=== PATIENT | male | born 1990 | race African-American/Black ===

== ENCOUNTER 2018-10-24 21:15 | Emergency (ER) | payer MEDICAID ==
--- NOTE | 2018-10-24 21:49 | Emergency Room Report ---
History of Present Illness General Chief Complaint: To Be Triaged Source: Patient Present Illness HPI Is a 27-year-old male who checked in with chief complaint of back pain. He was here with his friend who was checked in for asthma. Since I discharged the patient with asthma, he got up and left without being seen. I did not see this patient. Medical Decision Making Diagnostic Impression: Primary Impression: Low back pain Qualified Codes: M54.5 - Low back pain Disposition: LEFT W/OUT BEING SEEN Elio Ford MD Oct 24, 2018 21:49
== END 2018-10-24 21:43 | disposition left against medical advice (07) ==
LOC: EMR 21:43
DX: Z53.21 Procedure and treatment not carried out due to patient leaving prior to being seen by health care provider (principal); M54.5 Low back pain

== ENCOUNTER 2018-11-01 15:42 | Emergency (ER) | payer MEDICAID ==
[~2018-11-01] VITALS: Ht 185.4 cm; Wt 191.4 kg
[2018-11-01 15:50] VITALS: BP 130/75
--- NOTE | 2018-11-01 15:59 | NUR ---
ED Nurse Note: pt came in self ambulatory with . pt c/o chest pain 7/10 and trouble breathing per pt pain radiates to back and knees. pt has history of asthma. per pt he had duoneb 1540. Cinthia at bedside. Dr. Iraheta has seen pt, awaiting new orders
[2018-11-01] MEDS: Albuterol ud Inhalation HHN SCH ×3 (16:07→16:57)
[2018-11-01] MEDS: Ipratropium 0.02% Inh Soln 2.5ml UD HHN SCH ×3 (16:07→16:57)
--- NOTE | 2018-11-01 16:09 | NUR ---
ED Nurse Note: Dr. Iraheta ordered Presnisone. Per pt she gave pt prednisone at 1200 today 11/01/18. notified Dr. Iraheta, per md hold prednisone. will monitor pt, awaiting new orders.
--- NOTE | 2018-11-01 16:24 | Emergency Room Report ---
History of Present Illness General Chief Complaint: Dyspnea/Respdistress Source: Patient Present Illness HPI 27-year-old M presents ED for evaluation. Complaining of cough and shortness of breath. Productive phlegm. History of asthma. States his breathing treatments at home were not helping. States he went to urgent care today and was told he had a pneumonia. Is currently on day 2 of his Z-Mayur. Denies fevers chills. Denies sick contacts or recent travel. No other aggravating relieving factors. Denies any other associated symptoms Allergies: Coded Allergies: No Known Allergies (Unverified , 11/01/18) Patient History Past Medical History: asthma Past Surgical History: none Pertinent Family History: none Social History: Denies: smoking, alcohol use, drug use Immunizations: UTD Reviewed Nursing Documentation: PMH: Agreed; PSxH: Agreed Nursing Documentation-PMH Past Medical History: No History, Except For Hx Asthma: Yes Review of Systems All Other Systems: negative except mentioned in HPI Physical Exam Vital Signs Date Time Temp Pulse Resp B/P (MAP) Pulse Ox O2 Delivery O2 Flow Rate FiO2 11/01/18 15:46 98.2 95 23 144/81 100 Room Air 11/01/18 16:00 21 Sp02 EP Interpretation: reviewed, normal General Appearance: alert, GCS 15, non-toxic, obese Head: normocephalic, atraumatic Eyes: bilateral eye normal inspection, bilateral eye PERRL ENT: hearing grossly normal, normal pharynx, no angioedema, normal voice Neck: full range of motion, supple/symm/no masses Respiratory: chest non-tender, decreased breath sounds, speaking full sentences , wheezing Cardiovascular #1: regular rate, rhythm, no edema Cardiovascular #2: 2+ carotid (R), 2+ carotid (L), 2+ radial (R), 2+ radial (L) , 2+ dorsalis pedis (R), 2+ dorsalis pedis (L) Gastrointestinal: normal bowel sounds, non tender, soft, non-distended, no guarding, no rebound Rectal: deferred Genitourinary: normal inspection, no CVA tenderness Musculoskeletal: back normal, gait/station normal, normal range of motion, non- tender Neurologic: alert, oriented x3, responsive, motor strength/tone normal, sensory intact, speech normal Psychiatric: judgement/insight normal, memory normal, mood/affect normal, no suicidal/homicidal ideation Reflexes: 3+ bicep (R), 3+ bicep (L), 3+ tricep (R), 3+ tricep (L), 3+ knee (R) , 3+ knee (L) Skin: normal color, no rash, warm/dry, well hydrated Lymphatic: no adenopathy Medical Decision Making Diagnostic Impression: Primary Impression: Asthma exacerbation Qualified Codes: J45.901 - Unspecified asthma with (acute) exacerbation ER Course Hospital Course 27-year-old male presents to ED complaining of cough, wheezing, bodyaches. seen at urgent care today Differential diagnoses include: URI, bronchitis, asthma/COPD, pneumonia Clinical course Patient placed on stretcher. After initial history, physical exam reveals an obese male in mild acute distress. Bilateral TM unremarkable. No pharyngeal erythema. No tonsillar exudates. No lymphadenopathy. diffuse wheezing bilaterally. I ordered prednisone, chest x-ray, nebulizer treatments, EKG EKGnormal sinus rhythm no acute ischemic changes interpreted by me Chest x-rayno consolidation or infiltrate or effusion On reassessment patient is feeling better. Vital stable. no signs of distress. Discussed findings with patient. Patient is under the impression that he had pneumonia but there is no clinical evidence of pneumonia based on my exam I offered option for admission as patient states he has been having symptoms for many days now. Patient states he feels better, is asking to be discharged. Patient is currently prescribed azithromycin for his symptoms. I explained to patient that he should complete the Z-Mayur. We will prescribe inhaler, steroids , nebulizer machine, cough medication Safe for discharge and close outpatient follow-up Diagnosis - asthma exacerbation Stable and discharged home with prescriptions for albuterol, prednisone, nebulizer, promethazine, tylenol #3, amoxicillin. Instructed to followup with PMD. Return to ED if symptoms recur or worsen EKG Diagnostic Results Rate: normal Rhythm: NSR ST Segments: no acute changes ASA given to the pt in ED: No Rhythm Strip Diag. Results EP Interpretation: yes Rhythm: NSR, no PVC's, no ectopy Chest X-Ray Diagnostic Results Chest X-Ray Diagnostic Results : Chest X-Ray Ordered: Yes # of Views/Limited/Complete: 1 View Indication: Shortness of Breath EP Interpretation: Yes Interpretation: no consolidation, no effusion, no pneumothorax, no acute cardiopulmonary disease Impression: No acute disease Electronically Signed by: Electronically signed by Macario Hernandez MD Last Vital Signs Date Time Temp Pulse Resp B/P (MAP) Pulse Ox O2 Delivery O2 Flow Rate FiO2 11/01/18 16:12 102 18 100 Room Air 21 11/01/18 15:46 98.2 144/81 Status: improved Disposition: HOME, SELF-CARE Condition: Stable Scripts Acetaminophen With Codeine (T#3) (TYLENOL #3 TAB*) Y Tab 1 TAB ORAL Q8H PRN for For Pain for 3 Days, TAB Prov: Macario Hernandez MD 11/01/18 Nebulizer/Compressor (COMP-AIR NEBULIZER SYSTEM) 1 Each Each EACH , #1 Prov: Macario Hernandez MD 11/01/18 Amoxicillin* (AMOXIL*) 500 Mg Capsule 500 MG ORAL THREE TIMES A DAY, #21 CAP Prov: Macario Hernandez MD 11/01/18 Promethazine Hcl (PROMETHAZINE HCL*) 6.25 Mg/5 Ml Syrup 5 ML ORAL Q8H, #120 ML 0 Refills Prov: Macario Hernandez MD 11/01/18 Albuterol Sulfate* (ALBUTEROL SULFATE HHN*) 2.5 Mg/3 Ml Vial.neb 2.5 MG HHN Q4H PRN for Shortness of Breath, #25 VIAL Prov: Macario Hernandez MD 11/01/18 Albuterol Sulfate* (ALBUTEROL SULFATE MDI*) 8.5 Gm Hfa.aer.ad 2 PUFF INH Q4H PRN for cough/wheezing, #1 EA 0 Refills Prov: Macario Hernandez MD 11/01/18 Prednisone* (PREDNISONE*) 20 Mg Tablet 60 MG ORAL DAILY for 4 Days, #12 TAB Prov: Macario Hernandez MD 11/01/18 Referrals: [facility],REFERRING (PCP) Macario Hernandez MD Nov 01, 2018 16:24
--- NOTE | 2018-11-01 16:55 | Diagnostic Imaging Report ---
EXAM: XR Chest, 1 View CLINICAL HISTORY: COUGH TECHNIQUE: Frontal view of the chest. COMPARISON: No relevant prior studies available. FINDINGS: Lungs: No consolidation. Pleural space: Unremarkable. No pneumothorax. Heart: Unremarkable. No cardiomegaly. Mediastinum: Unremarkable. Bones/joints: No acute fracture. IMPRESSION: No acute cardiopulmonary disease.
[2018-11-01] MEDS ORDERED: Albuterol ud Inhalation HHN ONE (17:30)
[2018-11-01] MEDS ORDERED: Ipratropium 0.02% Inh Soln 2.5ml UD HHN ONE (17:30)
[2018-11-01 17:46] VITALS: BP 137/67
[2018-11-01] MEDS ORDERED: COMP-AIR NEBUL1 EACH MC (17:57)
[2018-11-01] MEDS ORDERED: ACETAMINOPHEN-1 EAC1 ORAL (17:57)
[2018-11-01] MEDS ORDERED: ALBUTEROL SULF8.5 GM INH (17:57)
[2018-11-01] MEDS ORDERED: AMOXICILLIN500 MG ORAL (17:57)
[2018-11-01] MEDS ORDERED: ALBUTEROL2.5 MG/3 M HHN (17:57)
[2018-11-01] MEDS ORDERED: PREDNISONE20 MG ORAL (17:57)
[2018-11-01] MEDS ORDERED: PROMETHAZI6.25 MG/1 ORAL (17:57)
[2018-11-01 18:11] VITALS: BP 133/72
--- NOTE | 2018-11-01 18:14 | NUR ---
ED Nurse Note: pt was dc self ambulatory. id band removed. pt was given rx instructions and dc education. pt verbalized understanding. Vss, pt ao x 4., shows no trouble with breathing.
== END 2018-11-01 18:10 | disposition home or self-care (01) ==
LOC: EMR 16:08
DX: J45.901 Unspecified asthma with (acute) exacerbation (principal)
CPT/HCPCS: 71045; 93005; 94644; 94664; 99284; J7512

== ENCOUNTER 2019-02-02 10:16 | Emergency (ER) | payer MEDICAID ==
[~2019-02-02] VITALS: Ht 185.4 cm; Wt 176.4 kg
[~2019-02-02 10:16] MED LIST: ACETAMINOPHEN-1 EAC1 ORAL; ALBUTEROL SULF8.5 GM INH; ALBUTEROL2.5 MG/3 M HHN; AMOXICILLIN500 MG ORAL; COMP-AIR NEBUL1 EACH MC; PREDNISONE20 MG ORAL; PROMETHAZI6.25 MG/1 ORAL
--- NOTE | 2019-02-02 10:30 | NUR ---
ED Nurse Note: Patient walked into ED from home c/o of left sided chest pain x 4 days. 4 days ago, patient had asthma attack, he went to urgent care.
[2019-02-02 10:48] VITALS: BP 124/63
--- NOTE | 2019-02-02 10:54 | Emergency Room Report ---
History of Present Illness General Chief Complaint: Chest Pain Source: Patient Present Illness HPI Patient is a 28-year-old male who presented after increased chest discomfort. Patient reports of increased left-sided chest pain. This did not radiate. Associated increased cough. Patient prior history of asthma and is currently on steroid taper. Is currently taking 10 mg of prednisone as well as a Ventolin inhaler. He denies any prior cardiac conditions. He states that he had been having constant pain for the past 3 days. He reports having some chronic swelling to his left lower extremity but denies any change in the swelling.Patient denies any fever or productive cough. Allergies: Coded Allergies: No Known Allergies (Unverified , 11/01/18) Patient History Past Medical History: see triage record Reviewed Nursing Documentation: PMH: Agreed; PSxH: Agreed Nursing Documentation-PMH Hx Asthma: Yes - BACK PAIN Review of Systems All Other Systems: negative except mentioned in HPI Physical Exam Vital Signs Date Time Temp Pulse Resp B/P (MAP) Pulse Ox O2 Delivery O2 Flow Rate FiO2 02/02/19 10:20 98.2 68 23 104/66 97 Room Air Sp02 EP Interpretation: reviewed, normal General Appearance: normal inspection, well appearing, no apparent distress, alert, GCS 15, non-toxic, obese Head: atraumatic ENT: normal ENT inspection, hearing grossly normal, normal voice Neck: normal inspection, full range of motion, supple, no bony tend Respiratory: normal inspection, lungs clear, normal breath sounds, no respiratory distress, no retraction, no wheezing Cardiovascular #1: regular rate, rhythm, no edema Gastrointestinal: normal inspection, normal bowel sounds, non tender, soft, no guarding, no hernia Genitourinary: no CVA tenderness Musculoskeletal: normal inspection, back normal, normal range of motion Neurologic: normal inspection, alert, oriented x3, responsive, speech normal Psychiatric: normal inspection, judgement/insight normal, mood/affect normal Skin: normal inspection, normal color, no rash Medical Decision Making Diagnostic Impression: Primary Impression: Chest pain Additional Impression: Asthma exacerbation ER Course Patient presented for chest pain. Differential diagnosis included but was not limited to acute coronary syndrome, pulmonary embolism, pneumonia, aortic dissection, shingles, pneumothorax, aortic dissection, esophageal rupture, pericarditis. Because of complexity of patient's case laboratory testing and imaging studies were ordered. EKG interpreted by me showed normal sinus rhythm with no acute ST or T wave changes. Chest x-ray 1 view read by radiology showed normal cardiac size without evident infiltrate or effusion. Patient was noted to have no significant cardiac risk factors. Patient also was noted to have sick contacts at home with similar symptoms and this appears to be a viral respiratory illness. Patient advised to continue steroids. He was advised to return if he began having any increased chest pain or worsening shortness of breath. He was given prescription for medications for cough symptomatic treatment. EKG Diagnostic Results Rate: normal - 63 Rhythm: NSR ST Segments: no acute changes Last Vital Signs Date Time Temp Pulse Resp B/P (MAP) Pulse Ox O2 Delivery O2 Flow Rate FiO2 02/02/19 10:20 98.2 68 23 104/66 97 Room Air Status: improved Disposition: HOME, SELF-CARE Condition: Stable Scripts Guaifenesin/Dextromethorphan (Guaifenesin Dm Syrup) 5 Ml Syrup 1 TSP ORAL Q8H, #118 ML 0 Refills Prov: Calos Yeager MD 02/02/19 Calos Yeager MD Feb 02, 2019 10:54
[2019-02-02] MEDS ORDERED: Albuterol ud Inhalation HHN ONE (11:00)
--- NOTE | 2019-02-02 11:50 | Diagnostic Imaging Report ---
Indication: Shortness of breath Technique: One view of the chest Comparison: 11/01/2018 Findings: Body habitus limits evaluation. Heart is borderline enlarged. No definite acute infiltrates, effusion, or congestion Impression: No definite acute process
--- NOTE | 2019-02-02 11:51 | NUR ---
ED Nurse Note: 3 RNs tried to start IV, unsuccessful. atm technician is here to try.
--- NOTE | 2019-02-02 12:04 | NUR ---
ED Nurse Note: director of labor and delivery Danilo tried, unable to. Notified Dr. Yeager.
[2019-02-02] MEDS ORDERED: GUAIFENESIN DM118 M1 ORAL (13:18)
[2019-02-02 13:22] VITALS: BP 124/63
--- NOTE | 2019-02-02 13:23 | NUR ---
ER DISCHARGE NOTE: Patient is cleared to be discharged per ERMD, pt is aox4, on room air, with stable vital signs. pt was given dc and prescription instructions, pt was able to verbalize understanding, pt id band removed without complications. pt is able to ambulate with steady gait. pt took all belongings.
--- NOTE | 2019-02-04 07:51 | Cardiology Report ---
APPROVED REPORT EKG Measurement Heart [id number] Normal sinus rhythm Low voltage QRS Borderline ECG
== END 2019-02-02 13:20 | disposition home or self-care (01) ==
LOC: EMR 10:30
DX: R07.89 Other chest pain (principal); J45.901 Unspecified asthma with (acute) exacerbation
CPT/HCPCS: 71045; 86710; 93005; 94640; 94664; 99284

== ENCOUNTER 2019-05-14 12:30 | Emergency (ER) | payer MEDICAID ==
[~2019-05-14] VITALS: Ht 185.4 cm; Wt 199.6 kg
[~2019-05-14 12:30] MED LIST changes: +GUAIFENESIN DM118 M1 ORAL
[2019-05-14 12:55] VITALS: BP 148/75
--- NOTE | 2019-05-14 12:55 | NUR ---
ED Nurse Note: pt walked in to Ed due to cp and intermittent sob for 3 days. pt also c/o lump on right side of chest. noticed it for last 2 months and getting bigger. no discharge or discoloration noted. pt has hx of obesity and asthma. able to speak full sentence without difficulty. maintained >94% of pulse oximetry in RA. AAO x4. respirations even and non-labored noted. breath sounds clear. will wait for the further order.
[2019-05-14] MEDS ORDERED: Albuterol ud Inhalation HHN ONE (13:00)
[2019-05-14] MEDS ORDERED: Ipratropium 0.02% Inh Soln 2.5ml UD HHN ONE (13:00)
--- NOTE | 2019-05-14 13:13 | Consultation ---
History of Present Illness General Date patient seen: May 14, 2019 Reason for Hospitalization: Chest Pain Present Illness HPI This is a very pleasant 28-year-old male who presented to the emergency department complaining of left-sided chest pain and a mass on his lower left chest wall. Patient states that he is noticed it for the past little while but is unsure when it actually began. Feels like there is a mass there and there is pain around it. Patient initially seen by Emergency department physician and given symptomology surgeon was called to evaluate and give second opinion. Patient seen, patient evaluate, chart reviewed. On inspection patient is a very pleasant morbidly obese male. He has a no palpable mass but does have excess adipose tissue in his left under boob. No mass identified. Tenderness can be reproduced on examination of the left chest wall. No nausea vomiting fever chills. Otherwise stable. Allergies: Coded Allergies: No Known Allergies (Unverified , 11/01/18) Medication History Scheduled Amoxicillin* (Amoxil*), 500 MG ORAL THREE TIMES A DAY Guaifenesin/Dextromethorphan (Guaifenesin Dm Syrup), 1 TSP ORAL Q8H Prednisone* (Prednisone*), 60 MG ORAL DAILY Promethazine Hcl (Promethazine Hcl*), 5 ML ORAL Q8H Scheduled PRN Acetaminophen With Codeine (T#3) (Tylenol #3 Tab*), 1 TAB ORAL Q8H PRN for For Pain Albuterol Sulfate* (Albuterol Sulfate Mdi*), 2 PUFF INH Q4H PRN for cough/ wheezing Albuterol Sulfate* (Albuterol Sulfate Hhn*), 2.5 MG HHN Q4H PRN for Shortness of Breath Durable Medical Equipment Nebulizer/Compressor (Comp-Air Nebulizer System), EACH , (DME) Patient History History Provided By: Patient, Friend Healthcare decision maker Resuscitation status Advanced Directive on File Past Medical/Surgical History Past Medical/Surgical History: (1) Chest pain (2) Asthma exacerbation Review of Systems Review of Symptoms General ROS: no weight loss or fever Psychological ROS: no depression or mood changes, no memory loss Ophthalmic ROS: no visual changes or eye irritation ENT ROS: no nasal congestion, hearing loss, dizziness Allergy and Immunology ROS: no allergic symptoms or urticaria Hematological and Lymphatic ROS: no swollen glands, unusual bleeding or bruising Endocrine ROS: no polyuria, polydipsia, weight changes, temperature intolerance Respiratory ROS: no cough, shortness of breath, or wheezing Cardiovascular ROS: no chest pain or dyspnea on exertion Gastrointestinal ROS: denies abdominal pain, no bright red blood in stool. Musculoskeletal ROS: no myalgias or arthralgias Neurological ROS: no TIA or stroke symptoms Dermatological ROS: no new or changing skin lesions, rashes or pruritis Physical Exam Physical Exam General appearance: alert, cooperative, no distress, appears stated age Head: Normocephalic, without obvious abnormality, atraumatic Eyes: conjunctivae/corneas clear. PERRL, EOM's intact. Fundi benign Throat: Lips, mucosa, and tongue normal. Teeth and gums normal Neck: supple, symmetrical, trachea midline, no adenopathy, thyroid: not enlarged, symmetric, no tenderness/mass/nodules, no carotid bruit and no JVD Lungs: clear to auscultation bilaterally Heart: regular rate and rhythm, S1, S2 normal, no murmur, click, rub or gallop Abdomen: soft, non-tender. Bowel sounds normal. No masses, no organomegaly obese Extremities: extremities normal, atraumatic, no cyanosis or edema Pulses: 2+ and symmetric Skin: Skin color, texture, turgor normal. No rashes or lesions Neurologic: Grossly normal Last 24 Hour Vital Signs Date Time Temp Pulse Resp B/P (MAP) Pulse Ox O2 Delivery O2 Flow Rate FiO2 05/14/19 12:40 98.4 75 16 148/75 (99) 99 Room Air Height (Feet): 6 Height (Inches): 1.00 Weight (Pounds): 440 Assessment/Plan Problem List: (1) Mass of chest wall, left Assessment & Plan: Patient complaining of having a mass on his left chest wall just inferior to his left breast. Feels that it is larger than the right side and there is something growing there. States that the area about where his pain is. On evaluation patient has excess adipose tissue noted underneath the left breast greater than that of the right. There is no mass identified no lipoma identified no cyst identified. There is no significant normality of the subcutaneous tissue other than excess adipose tissue and a very obese male. His fat distribution is not even is can be identified throughout his abdomen as well. Patient has a large pannus as well with some extra adipose tissue identified on the left side as compared to the right. Patient and his friend state that he is been losing weight and trying to be healthy. The left-sided chest pain is intermittent and mainly what can be identified as likely costochondritis based on history and physical. Able to reproduce some the discomfort on examination of the left chest wall, more consistent with costochondritis. No acute surgical intervention is necessary. Okay to discharge patient from surgical standpoint with follow-up with his primary care physician. Okay for non-steroid anti-inflammatory Thank You for allowing me to participate in patient's care ICD Codes: R22.2 - Localized swelling, mass and lump, trunk SNOMED: [id number] (2) Chest pain ICD Codes: R07.9 - Chest pain, unspecified SNOMED: [id number] (3) Asthma exacerbation ICD Codes: J45.901 - Unspecified asthma with (acute) exacerbation SNOMED: [id number] Vladislav Rivers May 14, 2019 13:13
--- NOTE | 2019-05-14 13:23 | NUR ---
ED Nurse Note: dr bejarano and at the bed side.
[2019-05-14 14:13] VITALS: BP 148/75
--- NOTE | 2019-05-14 14:13 | NUR ---
ER DISCHARGE NOTE: Patient is cleared to be discharged per ERMD, pt is aox4, on room air, with stable vital signs. pt was given dc instructions, pt was able to verbalize understanding, pt id band removed. pt is able to ambulate with steady gait. pt took all belongings.
--- NOTE | 2019-05-14 15:53 | Emergency Room Report ---
History of Present Illness General Chief Complaint: Chest Pain Source: Patient, Friend Present Illness Allergies: Coded Allergies: No Known Allergies (Unverified , 11/01/18) Nursing Documentation-[facility] Past Medical History: No History, Except For Hx Asthma: Yes Physical Exam Vital Signs Date Time Temp Pulse Resp B/P (MAP) Pulse Ox O2 Delivery O2 Flow Rate FiO2 05/14/19 12:40 98.4 75 16 148/75 (99) 99 Room Air 05/14/19 13:00 36 Medical Decision Making Diagnostic Impression: Primary Impression: Chest wall pain EKG Diagnostic Results Rate: normal Rhythm: NSR ST Segments: no acute changes ASA given to the pt in ED: No Rhythm Strip Diag. Results EP Interpretation: yes Rhythm: NSR, no PVC's, no ectopy Last Vital Signs Date Time Temp Pulse Resp B/P (MAP) Pulse Ox O2 Delivery O2 Flow Rate FiO2 05/14/19 14:13 98.4 75 18 148/75 99 Room Air 21 Disposition: HOME, SELF-CARE Condition: Stable Referrals: Vladislav Rivers [facility],REFERRING (PCP) Patient Instructions: Chest Wall Pain, [id number] Macario Hernandez MD May 14, 2019 15:53
--- NOTE | 2019-05-15 15:56 | Cardiology Report ---
APPROVED REPORT EKG Measurement Heart [id number] Normal sinus rhythm Normal ECG
== END 2019-05-14 14:13 | disposition home or self-care (01) ==
LOC: EMR 13:52
DX: R07.89 Other chest pain (principal); J45.901 Unspecified asthma with (acute) exacerbation; E66.01 Morbid (severe) obesity due to excess calories; Z68.43 Body mass index [BMI] 50.0-59.9, adult
CPT/HCPCS: 93005; 94640; 94664; 99283

== ENCOUNTER 2019-08-21 16:17 | Emergency (ER) | payer MEDICAID ==
[~2019-08-21] VITALS: Ht 185.4 cm; Wt 201.8 kg
[~2019-08-21 16:17] MED LIST changes: +PROMETHAZINE-C118 M1 ORAL
--- NOTE | 2019-08-21 16:51 | NUR ---
ED Nurse Note: Pt walked in ED c/o left side rib pain, states he woke up today with pain 06/13. Denies trauma/injury. Pt states he has asthma; no SOB/dyspnea at this time, saturating 99% on room air. Pt states he saw Dr Nuñez today, pt was recommended to have CT of the chest.
[2019-08-21 16:56] VITALS: BP 145/72
--- NOTE | 2019-08-21 17:02 | NUR ---
ED Nurse Note: ERMD at bedside.
[2019-08-21] MEDS ORDERED: IBUPROFEN600 MG ORAL (17:07)
--- NOTE | 2019-08-21 17:11 | NUR ---
ER DISCHARGE NOTE: Patient is cleared to be discharged per ERMD, pt is aox4, on room air, with stable vital signs. pt was given dc and prescription instructions, pt was able to verbalize understanding, pt id band removed. pt is able to ambulate with steady gait. pt took all belongings.
[2019-08-21 17:12] VITALS: BP 145/72
--- NOTE | 2019-08-22 14:01 | Emergency Room Report ---
History of Present Illness General Chief Complaint: Pain Source: Patient, Medical Record Present Illness HPI 28-year-old male presents ED for evaluation. Complaining of pain to left lower ribs. States he woke up this morning with the pain. Dull, 5 out of 10, nonradiating. Worse with deep breaths. Denies fevers or chills. Denies cough. Denies any recent injury. No other aggravating or relieving factors. Denies any other associated symptoms Allergies: Coded Allergies: No Known Allergies (Unverified , 11/01/18) Patient History Past Medical History: asthma Past Surgical History: none Pertinent Family History: none Social History: Denies: smoking, alcohol use, drug use Immunizations: UTD Reviewed Nursing Documentation: PMH: Agreed; PSxH: Agreed Nursing Documentation-PMH Past Medical History: No History, Except For Hx Asthma: Yes Review of Systems All Other Systems: negative except mentioned in HPI Physical Exam Vital Signs Date Time Temp Pulse Resp B/P (MAP) Pulse Ox O2 Delivery O2 Flow Rate FiO2 08/21/19 16:43 99.0 87 18 147/70 (95) 98 Room Air Sp02 EP Interpretation: reviewed, normal General Appearance: no apparent distress, alert, GCS 15, non-toxic, obese Head: normocephalic, atraumatic Eyes: bilateral eye normal inspection, bilateral eye PERRL ENT: hearing grossly normal, normal pharynx, no angioedema, normal voice Neck: full range of motion, supple/symm/no masses Respiratory: lungs clear, normal breath sounds, speaking full sentences, other - L lowre anterior rib pain. no bruising or crepitus Cardiovascular #1: regular rate, rhythm, no edema Cardiovascular #2: 2+ carotid (R), 2+ carotid (L), 2+ radial (R), 2+ radial (L) , 2+ dorsalis pedis (R), 2+ dorsalis pedis (L) Gastrointestinal: normal bowel sounds, non tender, soft, non-distended, no guarding, no rebound Rectal: deferred Genitourinary: normal inspection, no CVA tenderness Musculoskeletal: back normal, gait/station normal, normal range of motion, non- tender Neurologic: alert, oriented x3, responsive, motor strength/tone normal, sensory intact, speech normal Psychiatric: judgement/insight normal, memory normal, mood/affect normal, no suicidal/homicidal ideation Reflexes: 3+ bicep (R), 3+ bicep (L), 3+ tricep (R), 3+ tricep (L), 3+ knee (R) , 3+ knee (L) Lymphatic: no adenopathy Medical Decision Making Diagnostic Impression: Primary Impression: Rib pain ER Course Hospital Course 28 yo M presents to ED c/o L lower rib pain Differential diagnoses include: asthma, bronchitis, rib contusion Clinical course Patient placed on stretcher. After initial history, his exam reveals an obese male in no acute distress. Lungs clear. No crepitus or bruising. Reproducible pain on the left lower ribs. no abdominal pain. likely muscular. discussed findings with patient. Vitals stable. No signs of distress. Will discharge to home I. I feel this is a highly complex case requiring extensive working including EKG/Rhythm strip, Xray/CT/US, Blood/urine lab work, repeat exams while in ED, and administration of strong opiates/narcotics for pain control, admission to hospital or close patient follow up. Diagnosis - rib pain Stable and discharged to home with prescription for Motrin. Instructed to followup with PMD. Return to ED if symptoms recur or worsen Last Vital Signs Date Time Temp Pulse Resp B/P (MAP) Pulse Ox O2 Delivery O2 Flow Rate FiO2 08/21/19 17:12 98.9 82 18 145/72 99 Room Air Status: improved Disposition: HOME, SELF-CARE Condition: Stable Scripts Ibuprofen* (MOTRIN*) 600 Mg Tablet 600 MG ORAL Q8H PRN for For Pain, #30 TAB 0 Refills Prov: Macario Hernandez MD 08/21/19 Referrals: [facility],REFERRING (PCP) Patient Instructions: Chest Wall Pain, [id number] Macario Hernandez MD Aug 22, 2019 14:01
== END 2019-08-21 17:12 | disposition home or self-care (01) ==
LOC: EMR 17:00
DX: R07.81 Pleurodynia (principal); J45.909 Unspecified asthma, uncomplicated
CPT/HCPCS: 99282

== ENCOUNTER 2019-09-22 10:32 | Emergency (ER) | payer MEDICAID ==
[~2019-09-22] VITALS: Ht 185.4 cm; Wt 215.5 kg
[~2019-09-22 10:32] MED LIST changes: +IBUPROFEN600 MG ORAL
[2019-09-22 10:36] VITALS: BP 168/96
[2019-09-22] MEDS ORDERED: Albuterol ud Inhalation HHN ONE (11:30)
[2019-09-22] MEDS ORDERED: ALBUTEROL SULF8.5 GM INH ×3 (12:03→12:19)
[2019-09-22] MEDS ORDERED: PREDNISONE20 MG ORAL ×3 (12:03→12:19)
[2019-09-22 12:16] VITALS: BP 159/95
--- NOTE | 2019-09-22 14:05 | Emergency Room Report ---
History of Present Illness General Chief Complaint: Foreign Body Source: Medical Record Present Illness HPI 28-year-old male who presents with foreign body sensation in posterior pharynx on left side. Patient reported eating sunflower seeds and feeling like a seed is stuck now. Patient states he is able to swallow but has some mild discomfort with swallowing. Patient has a known history of asthma, and reports the symptoms are causing him to wheeze and breathe heavily. Patient denies any fever, cough, or congestion Allergies: Coded Allergies: No Known Allergies (Unverified , 11/01/18) Patient History PMH Narrative Asthma PSxH Narrative Not pertinent Nursing Documentation-PM Past Medical History: No History, Except For Hx Asthma: Yes Review of Systems Constitutional: Denies: chills, fever Eye: Denies: eye pain ENT: Reports: throat pain; Denies: ear pain, nose congestion, mouth pain Respiratory: Reports: shortness of breath, wheezing; Denies: cough Cardiovascular: Denies: chest pain, palpitations Gastrointestinal: Denies: abdominal pain, vomiting Genitourinary: Denies: dysuria, hematuria Musculoskeletal: Denies: back pain, joint swelling Skin: Denies: rash, lesions Physical Exam Vital Signs Date Time Temp Pulse Resp B/P (MAP) Pulse Ox O2 Delivery O2 Flow Rate FiO2 09/22/19 10:36 98.8 93 18 168/96 98 Room Air 09/22/19 11:51 21 Sp02 EP Interpretation: reviewed, normal General Appearance: no apparent distress, alert, GCS 15, non-toxic Head: normocephalic, atraumatic ENT: hearing grossly normal, normal pharynx, no angioedema, normal voice, uvula midline, moist mucus membranes, other - No visualized foreign body in posterior pharynx, tonsils, mouth. Neck: full range of motion, supple/symm/no masses Respiratory: chest non-tender, lungs clear, normal breath sounds, no rhonchi, no respiratory distress, no retraction, no accessory muscle use, no wheezing, speaking full sentences Cardiovascular #1: regular rate, rhythm, no edema Cardiovascular #2: 2+ radial (R), 2+ radial (L) Gastrointestinal: normal bowel sounds, non tender, soft, non-distended, no guarding, no rebound Musculoskeletal: gait/station normal, normal range of motion Medical Decision Making Diagnostic Impression: Primary Impression: Foreign body in throat Additional Impression: Asthma exacerbation ER Course 28-year-old male with foreign body sensation in throat. Patient states that he is also having some associated shortness of breath. No wheezing on exam however patient has known history of asthma. Differential includes asthma exacerbation, foreign body present, foreign body sensation, aspiration, impaction. Patient wheezing symptoms mildly improved after nebulizer treatment. Patient prescribed a course of steroids as this time a year is his normal exacerbations. Unable to visualize foreign body in posterior pharynx. Patient symptoms likely secondary to foreign body sensation than actual foreign body. Discussed to follow-up outpatient with ENT if patient continues to have symptoms. Patient has no stridor, airway obstruction, drooling, or dysphasia at this time. Patient is stable for outpatient follow-up Last Vital Signs Date Time Temp Pulse Resp B/P (MAP) Pulse Ox O2 Delivery O2 Flow Rate FiO2 09/22/19 12:16 98.6 82 17 159/95 100 Room Air 21 Disposition: HOME, SELF-CARE Condition: Stable Scripts Prednisone* (PREDNISONE*) 20 Mg Tablet 40 MG ORAL DAILY, #5 TAB Prov: Hoang Nguyen M.D. 09/22/19 Albuterol Sulfate* (ALBUTEROL SULFATE MDI*) 8.5 Gm Hfa.aer.ad 2 PUFF INH Q6H, #1 EA 0 Refills Prov: Hoang Nguyen M.D. 09/22/19 Hoang Nguyen M.D. Sep 22, 2019 14:05
[2019-09-23] MEDS ORDERED: VENTOLIN HFA18 GM INH (23:49)
== END 2019-09-22 12:16 | disposition home or self-care (01) ==
LOC: EMR 11:18
DX: R09.89 Other specified symptoms and signs involving the circulatory and respiratory systems (principal); J45.901 Unspecified asthma with (acute) exacerbation
CPT/HCPCS: 94640; 94664; Z7502; 99284

== ENCOUNTER 2019-09-23 23:38 | Emergency (ER) | payer MEDICAID ==
[~2019-09-23] VITALS: Ht 185.4 cm; Wt 215.5 kg
[2019-09-23] MEDS ORDERED: VENTOLIN HFA18 GM INH (23:49)
--- NOTE | 2019-09-24 | Emergency Room Report ---
History of Present Illness General Chief Complaint: Lower Extremity Injury Present Illness HPI Disclaimer: Please note that this report is being documented using [employer] technology. This can lead to erroneous entry secondary to incorrect interpretation by the dictating instrument. HPI: 28-year-old male with a history of asthma, morbid obesity presents for evaluation of shortness of breath and chest pressure and leg pain. Symptoms have been present 2 to 3 days. He states he has had an aching in his left calf and increased tightness as well as edema in the left ankle. No trauma reported. Over the same time he has michael worsening shortness of breath and wheezing that is not improving with his home albuterol treatments. He was started on prednisone for recent asthma exacerbation 2 days ago and has been compliant with his medications. He also notes a chest pressure and increased exertional dyspnea. He states he has a home pulse oximetry reading which was low at home reading in the low 90s and high 80s. Notes progressive exertional dyspnea as well. Notes a tightness over the chest. No prior history of PE, DVT , no immobilization, no recent travel, no hormone use, no coagulopathy. PMH: Obesity, asthma PSH: Denies Allergies: Denies Social Hx: Occasional alcohol use, denies smoking or drug use Allergies: Coded Allergies: No Known Allergies (Unverified , 11/01/18) Nursing Documentation-PMH Hx Asthma: Yes Hx COPD: Yes - bronchitis Review of Systems All Other Systems: negative except mentioned in HPI Physical Exam Vital Signs Date Time Temp Pulse Resp B/P (MAP) Pulse Ox O2 Delivery O2 Flow Rate FiO2 09/23/19 23:43 98.8 94 16 147/94 (111) 96 Room Air General: Awake and alert, no acute distress, morbidly obese male HEENT: NC/AT. EOMI. Chest Wall: No tenderness, no deformity Cardiovascular: RRR. S1 and S2 normal. No murmur appreciated Resp: Normal work of breathing. No cough, wheezing or crackles appreciated Abdomen: Abdomen is soft, nondistended. Nontender Skin: Intact. No abrasions, laceration or rash over the exposed skin MSK: Normal tone and bulk. Moving all extremities. No obvious deformity. The lower extremity's are obese and tense making it difficult to assess for asymmetry. There is pitting edema in the left foot. Brisk capillary refill distally. Neuro: Awake and alert. Mentating appropriately. Medical Decision Making ER Course 28-year-old male presents for evaluation of 2 days left-sided leg soreness as well as shortness of breath. Differential includes was not limited to angina, ACS, bronchitis, pneumonia, asthma exacerbation, COPD, PE, DVT, muscle strain, cramping. Given the patient's reported hypoxia at home and his constellation of symptoms must rule out DVT and PE. According to Wells criteria for PE and for DVT the patient is low risk. His arrives with stable vital signs, no tachycardia, no hypoxia, normal work of breathing, no recent immobilization, no active cancer or other risk factors for blood clots/hypercoagulable state. Will obtain a d-dimer as well as cardiac labs, EKG and chest x-ray. No evidence of wheezing on exam I do not believe he is in his asthma exacerbation at this time. If dimer is positive will advance with CTA and lower extremity Doppler studies. Otherwise, this likely either a viral syndrome or as a result of his recent asthma exacerbation for which she is currently taking steroids. Laboratory Tests Test 09/24/19 00:21 White Blood Count 14.9 K/UL (4.8-10.8) H Red Blood Count 5.18 M/UL (4.70-6.10) Hemoglobin 14.4 G/DL (14.2-18.0) Hematocrit 44.7 % (42.0-52.0) Mean Corpuscular Volume 86 FL (80-99) Mean Corpuscular Hemoglobin 27.8 PG (27.0-31.0) Mean Corpuscular Hemoglobin Concent 32.2 G/DL (32.0-36.0) Red Cell Distribution Width 12.4 % (11.6-14.8) Platelet Count 267 K/UL (150-450) Mean Platelet Volume 6.5 FL (6.5-10.1) Neutrophils (%) (Auto) % (45.0-75.0) Lymphocytes (%) (Auto) % (20.0-45.0) Monocytes (%) (Auto) % (1.0-10.0) Eosinophils (%) (Auto) % (0.0-3.0) Basophils (%) (Auto) % (0.0-2.0) D-Dimer 0.23 mg/L FEU (0.00-0.49) Sodium Level 140 MMOL/L (136-145) Potassium Level 3.8 MMOL/L (3.5-5.1) Chloride Level 105 MMOL/L (98-107) Carbon Dioxide Level 32 MMOL/L (21-32) Anion Gap 3 mmol/L (5-15) L Blood Urea Nitrogen 15 mg/dL (7-18) Creatinine 0.9 MG/DL (0.55-1.30) Estimate Glomerular Filtration Rate > 60 mL/min (>60) Glucose Level 118 MG/DL (74-106) H Calcium Level 9.2 MG/DL (8.5-10.1) Total Bilirubin Pending Aspartate Amino Transferase (AST) Pending Alanine Aminotransferase (ALT) Pending Alkaline Phosphatase Pending Troponin I 0.000 ng/mL (0.000-0.056) Pro-B-Type Natriuretic Peptide Pending Total Protein Pending Albumin Pending Globulin Pending EKG Diagnostic Results EKG Time: 00:00 Rate: normal Rhythm: NSR ST Segments: no acute changes Other Impression Sinus rhythm, normal axis, normal intervals, no ST segment changes. Rhythm Strip Diag. Results Rhythm Strip Time: 00:00 EP Interpretation: yes Rate: 80s Rhythm: NSR, no PVC's, no ectopy Chest X-Ray Diagnostic Results Chest X-Ray Diagnostic Results : Chest X-Ray Ordered: Yes # of Views/Limited/Complete: 1 View Indication: Shortness of Breath EP Interpretation: Yes Interpretation: other - Difficult to interpret given body habitus. No obvious infiltrate Impression: No acute disease Electronically Signed by: Electronically signed by Dr. Murray De Reevaluation Time: 01:07 Last Vital Signs Date Time Temp Pulse Resp B/P (MAP) Pulse Ox O2 Delivery O2 Flow Rate FiO2 09/23/19 23:43 98.8 94 16 147/94 (111) 96 Room Air Reevaluation Impression Labs including cardiac enzymes and d-dimer are within normal limits. No evidence of infiltrate on chest x-ray. Patient has had a stable heart rate and no evidence of hypoxia while in the emergency department. Very little clinical suspicion for PE or DVT at this time. His leg pain may be a ligamentous or muscular injury given his large stature and his shortness of breath may be related to his asthma exacerbation which he is currently being treated for. May also be a viral illness, occult injury to the leg however he remains ambulatory. He will be treated with NSAIDs and also prescribed Pepcid since he is taking steroids for asthma exacerbation. He will follow-up with his PMD. Discussed reasons to return to the emergency department. He understands and agrees with the treatment plan. Disposition: HOME, SELF-CARE Condition: Stable Scripts Famotidine (HEARTBURN RELIEF) 20 Mg Tablet 20 MG PO DAILY for 30 Days, #30 TAB Prov: Murray De MD 09/24/19 Ibuprofen* (MOTRIN*) 600 Mg Tablet 600 MG ORAL Q8H PRN for For Pain, #30 TAB 0 Refills Prov: Murray De MD 09/24/19 Murray De MD Sep 24, 2019 00:00
[2019-09-24 00:33] LABS: HEMATOCRIT 44.7 % (42.0-52.0); HEMOGLOBIN 14.4 G/DL (14.2-18.0); MEAN CORPUSCULAR VOLUME 86 FL (80-99); PLATELET COUNT 267 K/UL (150-450); RED BLOOD COUNT 5.18 M/UL (4.70-6.10); RED CELL DISTRIBUTION WIDTH 12.4 % (11.6-14.8); WHITE BLOOD COUNT 14.9 K/UL (4.8-10.8)
[2019-09-24 00:55] LABS: ANION GAP 3 mmol/L (5-15); BLOOD UREA NITROGEN 15 mg/dL (7-18); CALCIUM 9.2 MG/DL (8.5-10.1); CARBON DIOXIDE 32 MMOL/L (21-32); CHLORIDE 105 MMOL/L (98-107); CREATININE 0.9 MG/DL (0.55-1.30); POTASSIUM 3.8 MMOL/L (3.5-5.1); SODIUM 140 MMOL/L (136-145)
[2019-09-24] MEDS ORDERED: Acetaminophen 500mg (ES) tab ORAL ONE ×2 (01:00)
[2019-09-24 01:06] LABS: ALANINE AMINOTRANSFERASE 19 U/L (12-78); ALBUMIN 3.7 G/DL (3.4-5.0); ALBUMIN/GLOBULIN RATIO 0.8 (1.0-2.7); ALKALINE PHOSPHATASE 83 U/L (46-116); ASPARTATE AMINO TRANSFERASE 10 U/L (15-37); BILIRUBIN,TOTAL 0.2 MG/DL (0.2-1.0)
[2019-09-24] MEDS ORDERED: IBUPROFEN600 MG ORAL (01:22)
[2019-09-24] MEDS ORDERED: HEARTBURN RELIE20 MG PO (01:22)
[2019-09-24 01:30] VITALS: BP 132/74
--- NOTE | 2019-09-24 12:16 | Diagnostic Imaging Report ---
Indication: Dyspnea Comparison: 07/27/2019 A single view chest radiograph was obtained. Findings: The study is very limited due to motion and large body habitus. No obvious infiltrate identified. The heart appears prominent in size. Pulmonary vascularity may be mildly prominent also. The diaphragm is difficult to see on the left. IMPRESSION: Cardiomegaly. No overt CHF. Correlate clinically. Exam is very limited
--- NOTE | 2019-09-25 13:57 | Cardiology Report ---
APPROVED REPORT EKG Measurement Heart [id number] Sinus rhythm with marked sinus arrhythmia Nonspecific intraventricular conduction delay Borderline ECG
== END 2019-09-24 01:30 | disposition home or self-care (01) ==
LOC: EMR 23:59
DX: R06.02 Shortness of breath (principal); M79.605 Pain in left leg; R07.9 Chest pain, unspecified; R60.0 Localized edema; E66.9 Obesity, unspecified; Z68.44 Body mass index [BMI] 60.0-69.9, adult
CPT/HCPCS: 36415; 71045; 80053; 83880; 84484; 85025; 85379; 93005; Z7502; 99284